=== PATIENT | female | born 1975 | race Caucasian/White ===

== ENCOUNTER 2020-02-26 20:33 | Emergency (ER) | payer MEDICAID ==
[~2020-02-26] VITALS: Ht 170.2 cm; Wt 84.1 kg
[2020-02-26 21:01] VITALS: Ht 170.2 cm; Wt 84.1 kg
[2020-02-26] MEDS ORDERED: AUGMENTIN 875-11 TAB PO (21:42)
[2020-02-26 21:55] VITALS: BP 133/87
== END 2020-02-26 21:55 | disposition home or self-care (01) ==
LOC: D.ER 20:33
DX: S51.851A Open bite of right forearm, initial encounter (principal); W54.0XXA Bitten by dog, initial encounter; Y93.9 Activity, unspecified; Y92.9 Unspecified place or not applicable